=== PATIENT | female | born 1945 | race Native Hawaiian/Other Pacific Islander ===

== ENCOUNTER 2022-11-18 13:13 | Outpatient (CLI) | payer OTHER ==
[2022-11-18 14:19] LABS: PLATELET COUNT 164 K/uL (152-353)
[2022-11-18 14:53] LABS: POTASSIUM 3.9 mmol/L (3.6-5.2)
== END 2022-11-18 19:33 | disposition home or self-care (01) ==
LOC: LAB 13:13
PROVIDERS: ATTEND Internal Medicine
DX: D64.9 Anemia, unspecified (principal); G47.00 Insomnia, unspecified; I10 Essential (primary) hypertension; Z79.899 Other long term (current) drug therapy
CPT/HCPCS: 80053; 80061; 81002; 82550; 82728; 82746; 82977; 83540; 83550; 84100; 84439; 84443; 84550; 85027; 85044